=== PATIENT | female | born 1960 | race Caucasian/White ===

== ENCOUNTER → 2016-09-27 | Outpatient (CLI) | payer BC ==
--- NOTE | 2016-09-27 14:22 | MRI ---
HISTORY: Headache and nausea. Study: MRI brain with contrast. Comparison: None. Technique: Multiplanar multi-sequence MRI of the brain was obtained. Sagittal T1, axial T1, axial T 2, axial flair images, coronal T1, sagittal T1 post contrast, coronal T1 postcontrast, axial T1 post contrast images were obtained. Findings: The midline structures appear intact. The posterior fossa is unremarkable. The sulcal markings of the brain are normal in their appearance. Normal arrington-white differentiation is maintained. No evid ence for intraparenchymal hemorrhage or mass can be identified. No extra-axial fluid collections or subarachnoid hematoma can be seen. Evaluation of the diffusion weighted images demonstrates no ynes dence for acute ischemic change. The cerebral pontine angle is normal in its contour without eviden ce for mass. The ventricular system appears symmetric and nondilated. 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 Patient is status post right maxillary sinus surg ray. Bilateral inferior turbinate resection. Remaining paranasal sinuses and mastoid air cells are c lear. Postcontrast enhancement demonstrates no evidence for an enhancing lesion such as mass or vascular m alformation. IMPRESSION: 1. 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 No obvious syrinx of the visualized spinal cord. Otherwise, unremarkable MRI of the brain with and without contrast. 2. Other chronic findings as above. Reported By:
== END ==
LOC: RAD 12:48
PROVIDERS: ATTEND Family Medicine
DX: R51 Headache (principal); R11.0 Nausea
CPT/HCPCS: 70552